=== PATIENT | female | born 1960 | race Caucasian/White ===

== ENCOUNTER 2016-08-26 13:30 | Inpatient (IN) | payer MEDICAID ==
[~2016-08-26] VITALS: Ht 152.4 cm; Wt 59.0 kg
[2016-08-26 19:03] LABS: microscopic required? YES; urine erythrocyte TRACE (NEGATIVE)
[2016-08-26 19:54] LABS: PLATELET COUNT 319 x10^3mcL (130-400); RED CELL DISTRIBUTION WIDTH 12.1 % (11.5-14.5)
[2016-08-26 20:05] LABS: BILIRUBIN TOTAL 0.4 mg/dL (0.20-1.00); CALCIUM 8.4 mg/dL (8.5-10.1); CARBON DIOXIDE 30.4 mmol/L (21-32); CREATININE SERUM 1.5 mg/dL (0.6-1.0); POTASSIUM SERUM 4.5 mmol/L (3.5-5.1); TOTAL PROTEIN, SERUM 6.9 g/dL (6.4-8.2)
[2016-08-26 20:06] LABS: BASOPHIL % 0 % (0-2)
[2016-08-26] MEDS ORDERED: ASPIR 8181 MG PO (20:56)
[2016-08-26] MEDS ORDERED: GLUCOPHAGE XR500 MG PO (20:56)
[2016-08-26 21:28] LABS: AMPHETAMINE QUAL UR NONE DETECTED (NEG <=1000)
[2016-08-26 22:05] VITALS: BP 142/90
[2016-08-26 22:19] LABS: FREE T4 1.14 ng/dL (0.76-1.46); FREE THYROXINE INDEX 2.1 ug/dL (1.4-4.5); T4(THYROXINE) 6.1 ug/dL (4.7-13.3)
[2016-08-26 22:22] LABS: T3 TOTAL 0.38 ng/mL
[2016-08-26 22:31] LABS: MAGNESIUM 1.5 mg/dL (1.8-2.4); PHOSPHOROUS 3.8 mg/dL (2.5-4.9)
[2016-08-26 22:33] LABS: CHOLESTEROL/HDL RATIO 6.3
[2016-08-27 04:47] VITALS: BP 103/55
[2016-08-27 06:41] LABS: IRON 22 ug/dL (50-170); TOTAL IRON BINDING CAPACITY 175 ug/dL (250-450)
[2016-08-27 06:48] LABS: CALCIUM 8.3 mg/dL (8.5-10.1); CARBON DIOXIDE 26.6 mmol/L (21-32); CREATININE SERUM 1.2 mg/dL (0.6-1.0); MAGNESIUM 2.5 mg/dL (1.8-2.4); PHOSPHOROUS 2.2 mg/dL (2.5-4.9); POTASSIUM SERUM 3.8 mmol/L (3.5-5.1)
[2016-08-27 07:42] LABS: PLATELET COUNT 318 x10^3mcL (130-400); RED BLOOD CELLS 3.41 M/mm3 (4.10-5.10); RED CELL DISTRIBUTION WIDTH 12.2 % (11.5-14.5)
[2016-08-27 08:48] VITALS: Ht 152.4 cm; Wt 59.0 kg
[2016-08-27 09:57] VITALS: BP 111/60
[2016-08-27 11:54] LABS: BAND NEUTROPHIL 14 % (0-10); BASOPHIL 0 % (0-2); MONOCYTE 2 % (0-7); PLATELET MORPHOLOGY PLATELETS NORMAL; SEGMENTED NEUTROPHILS 84 % (37-75); rbc morphology (normal/abnorm) NORMAL (NORMAL)
[2016-08-27 14:00] VITALS: BP 142/69
[2016-08-27 18:41] VITALS: BP 136/68
[2016-08-27 21:45] VITALS: BP 127/64
[2016-08-28 06:07] VITALS: BP 137/55
[2016-08-28 06:19] LABS: BASOPHIL % 0.2 % (0-2); PLATELET COUNT 299 x10^3mcL (130-400); RED CELL DISTRIBUTION WIDTH 12.3 % (11.5-14.5)
[2016-08-28 06:44] LABS: CALCIUM 7.6 mg/dL (8.5-10.1); CARBON DIOXIDE 21.8 mmol/L (21-32); CHLORIDE SERUM 103 mmol/L (98-107); CREATININE SERUM 0.9 mg/dL (0.6-1.0); GFR1 > 60 mL/min; GLUCOSE SERUM 210 mg/dL (74-106); MAGNESIUM 2.2 mg/dL (1.8-2.4); PHOSPHOROUS 2.4 mg/dL (2.5-4.9); POTASSIUM SERUM 4.8 mmol/L (3.5-5.1); SODIUM SERUM 134 mmol/L (136-145)
[2016-08-28 09:58] VITALS: BP 141/65
[2016-08-28 17:47] VITALS: BP 174/83
[2016-08-28 21:55] VITALS: BP 151/71
[2016-08-29 05:57] VITALS: BP 160/79
[2016-08-29 06:29] VITALS: BP 153/68
[2016-08-29] MEDS ORDERED: GLU10 PO (10:25)
[2016-08-29] MEDS ORDERED: METFORMIN HCL1000 MG PO (10:26)
[2016-08-29 10:28] VITALS: BP 165/76
[2016-08-29] MEDS ORDERED: LAC PO (10:28)
[2016-08-29] MEDS ORDERED: NOR5 PO (10:29)
[2016-08-29] MEDS ORDERED: LEXAPRO10 MG PO (10:31)
[2016-08-29] MEDS ORDERED: CIPRO250 MG PO (10:42)
[2016-08-29] MEDS ORDERED: FERG PO (12:15)
[2016-08-29] MEDS ORDERED: VITAMIN C PURE500 M1 PO (12:16)
[2016-08-29 12:51] VITALS: BP 165/76
== END 2016-08-29 14:50 | disposition home or self-care (01) | DRG 463 ==
LOC: ED 13:30 → DU 20:30 → MU 08-28 10:49
PROVIDERS: Emergency Medicine; Family Medicine; ADMIT Family Medicine
DX: N10 Acute pyelonephritis (principal); N17.0 Acute kidney failure with tubular necrosis; E43 Unspecified severe protein-calorie malnutrition; D68.69 Other thrombophilia; E11.51 Type 2 diabetes mellitus with diabetic peripheral angiopathy without gangrene; E11.65 Type 2 diabetes mellitus with hyperglycemia; E87.8 Other disorders of electrolyte and fluid balance, not elsewhere classified; E87.1 Hypo-osmolality and hyponatremia; E83.42 Hypomagnesemia; R31.9 Hematuria, unspecified; I10 Essential (primary) hypertension; N20.0 Calculus of kidney; E83.39 Other disorders of phosphorus metabolism; E78.2 Mixed hyperlipidemia; D64.89 Other specified anemias; M62.50 Muscle wasting and atrophy, not elsewhere classified, unspecified site; Z79.82 Long term (current) use of aspirin; Z68.25 Body mass index [BMI] 25.0-25.9, adult; Z79.84 Long term (current) use of oral hypoglycemic drugs; K80.20 Calculus of gallbladder without cholecystitis without obstruction
CPT/HCPCS: 83880; 84439; J0696; J1815; J1885; J2270; J2405; J3475; J7030; Q0092